=== PATIENT | male | born 1975 | race Caucasian/White ===

== ENCOUNTER 2018-10-14 21:06 | Observation (INO) | payer OTHER ==
[2018-10-14 22:40] LABS: ALT (SGPT) 105 U/L (8-55); AST (SGOT) 66 U/L (5-34); Albumin 4.7 g/dL (3.5-5.0); Alkaline Phosphatase 58 U/L (40-150); Anion Gap 16 mmol/L (10-20); BUN (Urea Nitrogen) 28 mg/dL (8.9-20.6); CK (CPK) 1606 U/L (30-200); Calc. Creatinine Clearance 0 mL/min (70-130); Calcium 10.4 mg/dL (7.8-10.44); Carbon Dioxide 23 mmol/L (22-29); Chloride 102 mmol/L (98-107); Estimated GFR-MDRD 33; Globulin 3.1 g/dL (2.4-3.5); Glucose 104 mg/dL (70-105); Potassium 4.2 mmol/L (3.5-5.1); Protein, Total 7.8 g/dL (6.0-8.3); Sodium 137 mmol/L (136-145)
--- NOTE | 2018-10-15 00:14 | PDOC.FPRHP ---
- History of Present Illness Chief Complaint: Muscle cramps History of Present Illness: 43 yo M w/hx of HTN here as a transfer from [place] [facility] due to FANI and possible rhabdo. He was playing softball outside all day today and noticed that he started cramping after a few hours. He drank multiple bottles of pedialyte, however became concerned that he was dehydrated as the cramping continued. He has a hx of acute renal failure in the past due to dehydration, though has never required dialysis. At baseline his renal function is normal. Of note, pt takes Adderall daily. PCP Dr Cruz ED Course: In [place], Cr was over 3.0 and CK was apprx 1600. Pt received 2L NS and was transferred here. Repeat labs here show an improvement in Cr to 2.2 and stable CK. He has another order of NS ordered to be bolused prior to moving to floor. - Allergies/Adverse Reactions Allergies Allergy/AdvReac Type Severity Reaction Status Date / Time No Known Allergies Allergy Unverified 10/15/18 00:17 - Home Medications Medication Instructions Recorded Confirmed Type Dextroamphetamine/Amphetamine 30 mg PO DAILY 10/15/18 10/15/18 History [Adderall Xr 30 mg Capsule] Lisinopril 10 mg PO DAILY 10/15/18 10/15/18 History - History PMHx: HTN ADHD PSHx: R knee surgery R wrist surger FHx: Non contributory Social: No tobacco Social etoh, <1/day No recreational drugs - Review of Systems General: denies: fever/chills, weight/appetite/sleep changes Eyes: denies: vision changes ENT: denies: nasal congestion Respiratory: denies: cough, congestion, shortness of breath Cardiovascular: denies: chest pain, palpitation, edema Gastrointestinal: denies: nausea, vomiting, diarrhea, constipation, abdominal pain, GI bleeding Genitourinary: denies: dysuria, polyuria Skin: denies: rashes, lesions, jaundice Musculoskeletal: reports: other (Complains of cramping). denies: pain, tenderness, stiffness, swelling Neurological: denies: numbness, syncope, seizure Psychological: denies: anxiety, depression - Vital signs BP: 110/68 HR: 75 RR: 16 Tmax: 98.4 Pox: 96% on RA Wt: 148 kg - Physical Exam Constitutional: NAD, awake, alert and oriented HEENT: normocephalic and atraumatic, EOMI, no scleral icterus, grossly normal vision Neck: trachea midline Chest: no-tender to palpation Heart: RRR, normal S1/S2 Lungs: CTAB, no respiratory distress Abdomen: soft, non-tender, bowel sounds present Musculoskeletal: normal structure, normal tone, ROM grossly normal Neurological: no focal deficit, CN II-XII intact Skin: no rash/lesions, good turgor, capillary refill <2 seconds Heme/Lymphatic: no unusual bruising or bleeding, no purpura, no petechia Psychiatric: normal mood and affect, good judgment and insight FMR H&P: Results - Labs Result Diagrams: 10/14/18 22:11 Lab results: Sodium 137 mmol/L (136-145) 10/14/18 22:11 Potassium 4.2 mmol/L (3.5-5.1) 10/14/18 22:11 Chloride 102 mmol/L (98-107) 10/14/18 22:11 Carbon Dioxide 23 mmol/L (22-29) 10/14/18 22:11 BUN 28 mg/dL (8.9-20.6) H 10/14/18 22:11 Creatinine 2.23 mg/dL (0.7-1.3) H 10/14/18 22:11 Glucose 104 mg/dL (70-105) 10/14/18 22:11 Calcium 10.4 mg/dL (7.8-10.44) 10/14/18 22:11 Total Bilirubin 1.0 mg/dL (0.2-1.2) 10/14/18 22:11 AST 66 U/L (5-34) H 10/14/18 22:11 ALT 105 U/L (8-55) H 10/14/18 22:11 Alkaline Phosphatase 58 U/L (40-150) 10/14/18 22:11 Creatine Kinase 1606 U/L (30-200) H 10/14/18 22:11 Serum Total Protein 7.8 g/dL (6.0-8.3) 10/14/18 22:11 Albumin 4.7 g/dL (3.5-5.0) 10/14/18 22:11 FMR H&P: A/P - Problem List (1) FANI (acute kidney injury) Current Visit: Yes Status: Acute Code(s): N17.9 - ACUTE KIDNEY FAILURE, UNSPECIFIED (2) HTN (hypertension) Current Visit: Yes Status: Chronic Code(s): I10 - ESSENTIAL (PRIMARY) HYPERTENSION (3) ADHD Current Visit: Yes Status: Chronic (4) Elevated LFTs Current Visit: Yes Status: Acute Code(s): R94.5 - ABNORMAL RESULTS OF LIVER FUNCTION STUDIES (5) Elevated CK Current Visit: Yes Status: Acute - Plan 1. FANI - admit to med obs - labs are improving after 2L of IVF. Continue fluids over night and recheck renal fxn in am - patient has had multiple similar episodes in the past. A likely contributor is his oral stimulants 2. Elevated CK - dt dehydration. Will continue to monitor labs in am 3. Elevated LFT - unclear etiology. Given patient's obesity pt should have outpt work up for NAFLD - Repeat CMP in am 4. HTN - restart home meds 5. ADHD - hold home meds PPx SCD/frequent ambulation Diet Clinical Data Abstractor Full Dispo: patient is stable and improving. Would expect dc in less than 48 hours
[2018-10-15] MEDS ORDERED: Acetaminophen 325 MG TAB PO PRN (01:21)
[2018-10-15] MEDS ORDERED: Ondansetron PF 4 MG/2 ML Vial IVP PRN (01:23)
[2018-10-15] MEDS ORDERED: Ondansetron ODT 4 MG TAB SL PRN (01:23)
[2018-10-15 01:29] VITALS: BMI 43.9
[2018-10-15] MEDS: Lactated Ringer's 1,000 ML IV SCH ×2 (01:46→05:56)
[2018-10-15 06:30] LABS: #Eosinphils 0.2 thou/uL (0.0-0.7); #Lymphocytes 2.3 thou/uL (1.20-3.40); #Monocytes 0.8 thou/uL (0.11-0.59); #Neutrophils 4.3 thou/uL (1.40-6.50); %Basophils 0.2 % (0.0-1.0); %Eosinophils 2.4 % (0.0-10.0); %Monocytes 10.5 % (0.0-10.0); %Neutrophils 56.9 % (42.0-75.0); Hemoglobin 15.1 g/dL (14.0-18.0); Mean Corpuscular HGB CONC 34.5 g/dL (32.0-36.0); Mean Corpuscular Hemoglobin 31.8 pg (27.0-31.0); Mean Corpuscular Volume 92.2 fL (78.0-98.0); Mean Platelet Volume 8.2 fL (7.4-10.4); Platelet Count 221 thou/uL (130-400); RBC Distribution Width 12.9 % (11.5-14.5); Red Blood Cell (RBC) Count 4.74 mill/uL (4.70-6.10); White Blood Cell (WBC) Count 7.5 thou/uL (4.8-10.8)
[2018-10-15 06:50] LABS: ALT (SGPT) 85 U/L (8-55); AST (SGOT) 54 U/L (5-34); Albumin 4.1 g/dL (3.5-5.0); Alkaline Phosphatase 55 U/L (40-150); Anion Gap 12 mmol/L (10-20); BUN (Urea Nitrogen) 25 mg/dL (8.9-20.6); Bilirubin, Total 0.8 mg/dL (0.2-1.2); CK (CPK) 1438 U/L (30-200); Calc. Creatinine Clearance 138 mL/min (70-130); Calcium 9.3 mg/dL (7.8-10.44); Carbon Dioxide 24 mmol/L (22-29); Chloride 104 mmol/L (98-107); Estimated GFR-MDRD 52; Globulin 2.5 g/dL (2.4-3.5); Glucose 171 mg/dL (70-105); Potassium 3.4 mmol/L (3.5-5.1); Protein, Total 6.6 g/dL (6.0-8.3); Sodium 137 mmol/L (136-145)
[2018-10-15] MEDS ORDERED: Lisinopril 10 MG TAB PO SCH (09:00)
[2018-10-15 10:38] VITALS: BP 116/68; TEMP 98
--- NOTE | 2018-10-15 11:21 | HP ---
Please see the history and physical done by Dr. Lopez for which I agree. The patient is seen, evaluated, discussed, and examined with the residents at bedside. HISTORY OF PRESENT ILLNESS: This is a 43-year-old male who apparently has had issues before with some severe dehydration causing some renal insult, who was playing softball outside in the heat yesterday. Denied alcohol. But despite drinking plenty of fluids, started getting severe cramps, feeling very weak and obviously dehydrated and creatinine was found to be 3 when he went to the emergency room in [place] was transferred over here for IV fluids. CK was never really above a 1000, although there was some talk about this being rhabdomyolysis, but no evidence of that. Creatinine this morning is already down to 1.5 and CK is right at 2:30 pm. Liver function tests are slightly elevated, but that is pretty much chronic for him. PAST MEDICAL HISTORY: All per the residents' history and physical for which I agree. PAST SURGICAL HISTORY: All per the residents' history and physical for which I agree. FAMILY HISTORY: All per the residents' history and physical for which I agree. MEDICATIONS: All per the residents' history and physical for which I agree. ALLERGIES: ALL PER THE RESIDENTS' HISTORY AND PHYSICAL FOR WHICH I AGREE. REVIEW OF SYSTEMS: All per the residents' history and physical for which I agree. SOCIAL HISTORY: All per the residents' history and physical for which I agree. PHYSICAL EXAMINATION: GENERAL: Alert and oriented x3. No apparent distress. VITAL SIGNS: Stable. ENT: Moist mucosa. Anicteric. CHEST: Clear. CARDIOVASCULAR: Regular rate and rhythm. ABDOMEN: Benign. EXTREMITIES: Show no edema. ASSESSMENT: Status post acute renal insufficiency from dehydration from being over heated. PLAN: Plan is to be discharged now. He has had plenty of IV fluids and his creatinine is coming down. Can follow this up as an outpatient. At this point in time, I am not too concerned. Did give standard warnings about staying hydrated again and he may want to consider just not playing any softball league in the summer in heat outside during the middle of the day. Job ID: [id number]
--- NOTE | 2018-10-16 03:13 | DIS ---
DATE OF ADMISSION: 10/15/2018 DATE OF DISCHARGE: 10/15/2018 DISCHARGE ATTENDING: Clifton Cruz MD. CONSULTS: None. PROCEDURES: None. PRIMARY DIAGNOSIS: Acute kidney injury. SECONDARY DIAGNOSES: 1. Hypertension. 2. Attention deficit hyperactivity disorder. 3. Transaminitis. 4. Elevated CK. DISCHARGE MEDICATIONS: 1. Citalopram 40 mg daily. 2. Adderall extended release 30 mg daily. 3. Lisinopril 10 mg daily. HISTORY OF PRESENT ILLNESS/HOSPITAL COURSE: Mr. Zamora is a 43-year-old male with a past medical history of hypertension and ADHD, who was transferred from [place] [facility] due to FANI and possible rhabdo. He had been playing softball outside and reported cramping. He was not drinking alcohol, but was drinking multiple bottles of water and Pedialyte. He had had this happened one time prior where he had developed acute renal failure, but did not require dialysis. In [place], the creatinine was greater than 3 and CK was approximately 1600. He received 2 L normal saline and was transferred to [facility]. Repeat labs showed a creatinine 2.2 and stable CK. He received again another bolus and in the morning, his creatinine improved to 1.5, CK 1438. The patient was tolerating p.o. In regard to his elevated LFTs, it is likely this is secondary to obesity. The patient can undergo further workup outpatient. DISPOSITION: Stable. DISCHARGE INSTRUCTIONS: 1. Location: Home. 2. Diet: Regular. 3. Activity: Would limit time spent playing softball in the middle of the day and stay hydrated as much as possible during. 4. Followup: With PCP, Dr. Cruz, within 3 to 7 days. Job ID: [id number]
== END 2018-10-15 10:39 | disposition home or self-care (01) ==
LOC: ERS 21:06 → T4-B 10-15 01:16
PROVIDERS: ADMIT Family Medicine; ATTEND Family Medicine
DX: N17.9 Acute kidney failure, unspecified (principal); I10 Essential (primary) hypertension; F90.9 Attention-deficit hyperactivity disorder, unspecified type; R74.0 Nonspecific elevation of levels of transaminase and lactic acid dehydrogenase [LDH]; R94.5 Abnormal results of liver function studies; E86.0 Dehydration; E66.9 Obesity, unspecified; Z68.41 Body mass index [BMI] 40.0-44.9, adult; Z79.899 Other long term (current) drug therapy
CPT/HCPCS: 36415; 80053; 82550; 85025; 96360; 96361; G0378

== ENCOUNTER 2020-03-28 07:55 | Outpatient (CLI) | payer BC ==
--- NOTE | 2020-03-28 09:28 | MRI ---
MRI Lower Ext Jt Rt WO Con History: Strain of right gastrocnemius muscle Comparison: None. Findings: Bones: No fracture. No malalignment. No medullary edema. Large osteochondral defect, chronic, of the weightbearing surface medial femoral condyle incompletely evaluated. Muscles: The plantaris muscle and tendon is intact. The lateral head gastrocnemius is intact. Soleus muscle is intact. Relatively large tear of the medial gastrocnemius anterior gastrocnemius aponeurosis with low-grade i ntramuscular component. The tear measures 3.5 cm in transverse dimension of the craniocaudal dimension of approximately 12 cm. Tear appears to be U shaped. Impression: Relatively large U-shaped tear medial head anterior gastrocnemius aponeurosis measuring 3 .5 cm transverse with craniocaudal dimension of 12 cm. Mild intermuscular hematoma between the soleus and medial head gastrocnemius muscle measuring up to 3.5 cm in size.
== END 2020-03-28 07:56 | disposition home or self-care (01) ==
LOC: TBSIIMAG 07:55
PROVIDERS: ATTEND Orthopaedic Surgery
DX: S86.111A Strain of other muscle(s) and tendon(s) of posterior muscle group at lower leg level, right leg, initial encounter (principal); S80.11XA Contusion of right lower leg, initial encounter

== ENCOUNTER 2020-05-09 16:30 | Outpatient (CLI) | payer BC | END 2020-05-09 16:31 | disposition home or self-care (01) | LOC: SLEEPLAB 16:30 | PROVIDERS: ATTEND Otolaryngology Plastic Surgery within the Head & Neck | DX: G47.33 Obstructive sleep apnea (adult) (pediatric) (principal); R09.89 Other specified symptoms and signs involving the circulatory and respiratory systems; K21.9 Gastro-esophageal reflux disease without esophagitis; R06.83 Snoring; I10 Essential (primary) hypertension; F32.9 Major depressive disorder, single episode, unspecified; F90.9 Attention-deficit hyperactivity disorder, unspecified type; G47.00 Insomnia, unspecified; E66.9 Obesity, unspecified; Z68.41 Body mass index [BMI] 40.0-44.9, adult | CPT/HCPCS: 95806 ==

== ENCOUNTER 2020-06-11 06:09 | Day surgery (SDC) | payer BC ==
[2020-06-10 09:44] VITALS: BMI 38.7
[2020-06-11] MEDS ORDERED: Bacitracin Zinc Ointment 30 gm TUBE ONE (06:35)
[2020-06-11] MEDS ORDERED: Ferric Subsulfate (ASTRINGYN) 8 GM VIAL ONE (06:35)
[2020-06-11] MEDS ORDERED: Lidocaine 1% w/Epinephrine 1:100K 20 ML VIAL ONE (06:35)
[2020-06-11] MEDS ORDERED: AFRIN NASAL MIST 15 ML BOT ONE (06:46)
[2020-06-11] MEDS ORDERED: Midazolam HCl 2 mg/2 ml Vial ONE ×2 (07:35→08:02)
[2020-06-11] MEDS ORDERED: Fentanyl 100 MCG/2 ML VIAL ONE ×4 (08:02→11:21)
[2020-06-11] MEDS ORDERED: Lidocaine 4% Topical Sol 50 ML BOT ONE (08:03)
[2020-06-11] MEDS ORDERED: methylPREDNISolone Acetate 40 mg/ml Vial ONE (08:29)
[2020-06-11] MEDS ORDERED: Dexamethasone 20 MG/5 ML VIAL ONE (09:44)
[2020-06-11] MEDS ORDERED: Ondansetron PF 4 MG/2 ML Vial ONE (09:44)
[2020-06-11] MEDS ORDERED: PROPOFOL 200 MG/20 ML VIAL ONE (09:44)
[2020-06-11] MEDS ORDERED: Lidocaine 1% PF 5 ML VIAL ONE (09:44)
[2020-06-11] MEDS ORDERED: PHENYLEPHRINE-NS 100 MCG/ML 10 ML SYRINGE ONE (09:44)
[2020-06-11] MEDS ORDERED: Rocuronium Bromide 10 MG/ML (10ML VIAL) ONE (09:44)
[2020-06-11] MEDS ORDERED: Succinylcholine 200 MG/10 ml SYRINGE FS ONE (09:44)
[2020-06-11] MEDS ORDERED: Glycopyrrolate 0.2 MG/ML 5 ML SYRINGE ONE (09:44)
[2020-06-11] MEDS ORDERED: hydrALAZINE 20 MG/ML VIAL ONE (10:41)
[2020-06-11] MEDS ORDERED: Hydrocodone-Acetamin 15 ML UDCUP ONE (12:40)
--- NOTE | 2020-06-12 08:34 | OP ---
DATE OF PROCEDURE: 06/11/2020 PREOPERATIVE DIAGNOSES: 1. Chronic rhinosinusitis. 2. Nasal polyposis. 3. Nasal septal deviation. 4. Bilateral inferior turbinate hypertrophy. 5. Bilateral nasal valve collapse. 6. Nasal obstruction. 7. Chronic adenotonsillitis. 8. Adenotonsillar hypertrophy. 9. Uvula swelling and hypertrophy. 10. Obstructive sleep apnea. POSTOPERATIVE DIAGNOSES: 1. Chronic rhinosinusitis. 2. Nasal polyposis. 3. Nasal septal deviation. 4. Bilateral inferior turbinate hypertrophy. 5. Bilateral nasal valve collapse. 6. Nasal obstruction. 7. Chronic adenotonsillitis. 8. Adenotonsillar hypertrophy. 9. Uvula swelling and hypertrophy. 10. Obstructive sleep apnea. PROCEDURES PERFORMED: 1. Bilateral endoscopic sinus surgery, total ethmoidectomy and sphenoidotomies including removal of tissue. 2. Bilateral endoscopic sinus surgery, maxillary antrostomies with removal of tissue. 3. Bilateral endoscopic sinus surgery, frontal sinus exploration. 4. Bilateral repair of nasal valve collapse. 5. Nasoseptoplasty. 6. Bilateral inferior turbinate submucosal resection. 7. Tonsillectomy and adenoidectomy. 8. Uvulectomy. 9. LandmarX stereotactic image-guided cranial base navigational surgery. ESTIMATED BLOOD LOSS: 50 mL. COMPLICATIONS: None. ANESTHESIA: GETA. PROCEDURE IN DETAIL: TONSILLECTOMY AND ADENOIDECTOMY: After consent was obtained, the patient was identified, brought to the operating room, and placed on the operating table in the supine position. General endotracheal anesthesia and intravenous access was obtained and we proceeded with positioning the patient for oropharyngeal surgery. Oropharyngeal exposure was obtained with a Arabella-Tyler mouth gag after a head drape was placed and secured with a towel clip. The Arabella-Tyler mouth gag was then suspended from the Fuentes tray and palatal elevation was achieved with a red rubber catheter. The right tonsil was addressed first. We used a curved Allis to grasp the tonsil and retract it medially as an anterior pillar incision was made. The retrotonsillar fascial plane was then established and blunt dissection was performed with the suction cautery. Blood vessels were anticipated, identified, and cauterized as they were encountered. Ultimately, dissection was carried to the posterior tonsillar pillar mucosa which was incised hemostatically, as well as the base of tongue connection. The tonsil was then passed off as a specimen and bleeding points within the tonsillar bed were cauterized under direct visualization. We subsequently turned our attention to the contralateral side, where using a similar technique, a near identical procedure was performed. Again, the tonsil was grasped and retracted medially with a curved Allis. The retrotonsillar fascial plane was established and while the anterior pillar was retracted medially, the hemostatic blunt dissection of the tonsil with a suction cautery was performed with blood vessels anticipated, identified, and cauterized as they were encountered. Again, dissection continued to the base of tongue and posterior tonsillar pillar mucosa which was incised in a hemostatic fashion. The tonsillar beds were then carefully inspected and bleeding points were identified and cauterized with a suction cautery. After this portion of the procedure, hemostasis was completely obtained. Under direct mirror visualization, we visualized the adenoid pad. Under direct mirror visualization, we removed the bulk of the adenoid tissue with the adenoid curette. We then packed the nasopharynx for an appropriate period of time with Chepe-Synephrine saturated tonsillar sponges. After a period of observation, we removed the pack. Under indirect mirror visualization, we obtained hemostasis and vaporization of residual adenoid tissue with electrocautery. The patient's oral cavity was copiously irrigated with iced saline and subsequently suctioned. After completion of the procedure, the nasal cavity and oropharynx were irrigated and suctioned as were the gastric contents. The patient was then awakened and transferred to the recovery room where the patient remained in stable condition prior to discharge to Day Stay. Following this, the uvula was measured and the excessive portions of the markedly elongated uvula was removed using the Bovie electrocautery. The mucosal edges of the uvula and the upper anterior tonsillar pillars were reapproximated using a 3-0 chromic gut stitch. NASOSEPTOPLASTY AND BILATERAL INFERIOR TURBINATE SUBMUCOSAL RESECTION: Patient was taken to the operating room and placed supine on the table. General endotracheal anesthesia was obtained by the anesthesia staff. Then 1% lidocaine with 1:100,000 epinephrine was injected into the nasal septum as well as the inferior turbinates. The patient was prepped and draped in standard surgical fashion. The Afrin pledgets were then removed. A Stephen incision was made on the left nasal septum. Submucoperichondrial dissection was performed bilaterally of the deviated portions of the septum, which included the maxillary crest and the crest deviation, as well as the mid portion of the septum. Cartilage and bony deviation was removed, leaving a generous caudal and dorsal strut. Any straight pieces of cartilage were then placed within the cartilage press, pressed, straightened, and then placed between the mucoperichondrial flaps, which were then closed using a 4-0 gut stitch. The inferior turbinates were then punctured with the submucosal Coblation machine, and 3 separate coblations were delivered to the anterior inferior portion of the inferior turbinates. Following this, the nasal cavity was irrigated. All debris was removed. An orogastric tube was placed. Gastric contents and Wahl splints were then placed in the nasal cavity and sutured with a 3-0 silk stitch. Following this, the Dwellable image-guided system was then set up and calibrated and was noted to be within 1 mm of accuracy. All instruments used within the nasal cavity and sinuses were under stereotactic navigation. Following this, the 0-degree endoscope and the [place] elevator were then used to visualize the middle turbinates and the middle turbinate was medialized bilaterally. The uncinate process was then visualized and was anteriorly fractured using the ball-ended probe bilaterally. The 0-degree microdebrider and curved microdebrider blade were used to remove the uncinate process bilaterally. The natural maxillary sinus ostia were identified and was widened using a 40-degree microdebrider and the straight Blakesley forceps bilaterally. Large polyps were removed from the maxillary sinuses bilaterally. These polyps were extended into the maxillary sinus ostia today maxillary sinus outflow tract. Following this, ethmoidal bulla was identified bilaterally and a 0-degree microdebrider was used to puncture the ethmoidal bulla on its medial and inferior aspects bilaterally. Following this, ethmoidal bulla was removed using the 0-degree microdebrider, 40-degree microdebrider, and up-biting Blakesley forceps bilaterally. Following this, the grand lamella was identified and was punctured into the posterior ethmoidal cells. Working from posterior to anterior using the navigational instruments, the ethmoidal cells were opened protecting the cribriform plate. Following this, the anterior wall of the sphenoid sinus was identified and was confirmed using the navigational system and a sphenoidotomy was created bilaterally with the 0-degree microdebrider. The sphenoidotomy was then widened in a medial and inferior direction bilaterally with the 0-degree microdebrider. Polypoid tissue was removed from the posterior ethmoidal cell as well as the sphenoid sinus ostia bilaterally. Following this, a 45-degree endoscope along with 40-degree microdebrider blade was used to further open the frontal sinus ostia, then widened the frontal sinus outflow tracts bilaterally. Following this, the lateral nasal wall was measured and a small endonasal incision was made. A subperiosteal pocket was created overlying the nasal bones bilaterally. A graft implant was placed into this pocket and then was positioned inferiorly to support the lower lateral cartilages bilateral. This resulted in improvement in the nasal valve collapse bilaterally. An incision was then closed using a 6-0 chromic gut stitch. Following this, the nasal cavity was irrigated. NasoPore packing was placed within the middle meatus. Wahl splints were placed and secured. The patient tolerated the procedure well and then the stereotactic navigational system was turned off. Job ID: [id number]
== END 2020-06-11 12:52 | disposition home or self-care (01) ==
LOC: SDC 06:09
PROVIDERS: ATTEND Otolaryngology Plastic Surgery within the Head & Neck
PROC: 09BT8ZZ Excision of Left Frontal Sinus, Via Natural or Artificial Opening Endoscopic (ICD-10-PCS; principal; 2020-06-11)
PROC: 09SM4ZZ Reposition Nasal Septum, Percutaneous Endoscopic Approach (ICD-10-PCS; principal; 2020-06-11)
PROC: 099Q8ZZ Drainage of Right Maxillary Sinus, Via Natural or Artificial Opening Endoscopic (ICD-10-PCS; principal; 2020-06-11)
PROC: 099X8ZZ Drainage of Left Sphenoid Sinus, Via Natural or Artificial Opening Endoscopic (ICD-10-PCS; principal; 2020-06-11)
PROC: 8E09XBZ Computer Assisted Procedure of Head and Neck Region (ICD-10-PCS; principal; 2020-06-11)
PROC: 09TV8ZZ Resection of Left Ethmoid Sinus, Via Natural or Artificial Opening Endoscopic (ICD-10-PCS; principal; 2020-06-11)
PROC: 0CTPXZZ Resection of Tonsils, External Approach (ICD-10-PCS; principal; 2020-06-11)
PROC: 09BS8ZZ Excision of Right Frontal Sinus, Via Natural or Artificial Opening Endoscopic (ICD-10-PCS; principal; 2020-06-11)
PROC: 09TU8ZZ Resection of Right Ethmoid Sinus, Via Natural or Artificial Opening Endoscopic (ICD-10-PCS; principal; 2020-06-11)
PROC: 099R8ZZ Drainage of Left Maxillary Sinus, Via Natural or Artificial Opening Endoscopic (ICD-10-PCS; principal; 2020-06-11)
PROC: 09QM8ZZ Repair Nasal Septum, Via Natural or Artificial Opening Endoscopic (ICD-10-PCS; principal; 2020-06-11)
PROC: 09BL8ZZ Excision of Nasal Turbinate, Via Natural or Artificial Opening Endoscopic (ICD-10-PCS; principal; 2020-06-11)
PROC: 0CTNXZZ Resection of Uvula, External Approach (ICD-10-PCS; principal; 2020-06-11)
PROC: 099W8ZZ Drainage of Right Sphenoid Sinus, Via Natural or Artificial Opening Endoscopic (ICD-10-PCS; principal; 2020-06-11)
PROC: 0CTQXZZ Resection of Adenoids, External Approach (ICD-10-PCS; principal; 2020-06-11)
DX: J35.03 Chronic tonsillitis and adenoiditis (principal); J35.8 Other chronic diseases of tonsils and adenoids; J32.9 Chronic sinusitis, unspecified; J34.2 Deviated nasal septum; J34.3 Hypertrophy of nasal turbinates; J33.9 Nasal polyp, unspecified; J34.89 Other specified disorders of nose and nasal sinuses; G47.33 Obstructive sleep apnea (adult) (pediatric); K13.79 Other lesions of oral mucosa; F17.290 Nicotine dependence, other tobacco product, uncomplicated; F90.9 Attention-deficit hyperactivity disorder, unspecified type; F32.9 Major depressive disorder, single episode, unspecified; I10 Essential (primary) hypertension; M19.90 Unspecified osteoarthritis, unspecified site; Z79.899 Other long term (current) drug therapy
CPT/HCPCS: 88302; 88304; J0360; J1100; J2250; J2405; J2704; J2920; J3010